=== PATIENT | male | born 2000 | race Hispanic/Latino ===

== ENCOUNTER 2023-01-11 10:38 | Emergency (ER) | payer OTHER ==
[~2023-01-11] VITALS: Ht 170.2 cm; Wt 85.7 kg
[2023-01-11 12:02] VITALS: BP 125/44
[2023-01-11] MEDS ORDERED: LIDOCAINE HCL 1% 20 ML VIAL ONE (12:55)
[2023-01-11] MEDS ORDERED: IBUPROFEN 600 MG TABLET PO ONE (13:00)
[2023-01-11] MEDS ORDERED: LIDOCAINE HCL MPF 1% 5ML VIAL IM SCH (13:00)
[2023-01-11] MEDS ORDERED: BACI30OI6 TP (14:42)
[2023-01-11] MEDS ORDERED: AMOX1TAB16 PO (14:42)
[2023-01-11] MEDS ORDERED: IBUP-2070 PO (14:42)
== END 2023-01-11 15:00 | disposition home or self-care (01) ==
LOC: EDH 10:38
DX: S61.212A Laceration without foreign body of right middle finger without damage to nail, initial encounter (principal); M79.641 Pain in right hand; M25.561 Pain in right knee; W54.0XXA Bitten by dog, initial encounter; Y93.89 Activity, other specified; Y92.89 Other specified places as the place of occurrence of the external cause; Y99.8 Other external cause status
CPT/HCPCS: 12001; 73120; J3490